=== PATIENT | female | born 1990 | race African-American/Black ===

== ENCOUNTER 2017-06-14 17:44 | Emergency (ER) | payer SELFPAY ==
[~2017-06-14] VITALS: Ht 162.6 cm; Wt 49.9 kg
[2017-06-14 17:49] VITALS: BP 100/66
[2017-06-14 17:51] VITALS: BP 100/65
[2017-06-14] MEDS ORDERED: NKM (17:51)
--- NOTE | 2017-06-14 17:57 | Emergency Room Report ---
History of Present Illness General Chief Complaint: Seizure Source: Patient Present Illness HPI 27YOF BIBEMS from home with alleged seizure for 30 seconds Atraumatic Occurred 20 min ago but patient is on her phone in the ED, talking to me, EMS States last seizure "years ago." Had "a lot of CT and MRI" but no findings Denies formal seizure Dx, never saw neurologist Smokes marijuana regularly Denies other medical problems Allergies: Coded Allergies: No Known Allergies (Unverified , 06/14/17) Patient History Past Medical History: none Past Surgical History: none Pertinent Family History: none Social History: Reports: smoking, drug use Now: No Immunizations: UTD Reviewed Nursing Documentation: PMH: Agreed, PSxH: Agreed Nursing Documentation-PMH Past Medical History: No Stated History Review of Systems All Other Systems: negative except mentioned in HPI Physical Exam Vital Signs Date Time Temp Pulse Resp B/P (MAP) Pulse Ox O2 Delivery O2 Flow Rate FiO2 06/14/17 17:40 98.4 88 18 101/74 98 Room Air Sp02 EP Interpretation: reviewed, normal General Appearance: normal inspection, well appearing, no apparent distress, alert, GCS 15, non-toxic Head: normocephalic, atraumatic Eyes: bilateral eye PERRL, bilateral eye EOMI ENT: normal ENT inspection, hearing grossly normal, normal voice Neck: normal inspection, full range of motion, supple, no bony tend Respiratory: normal inspection, lungs clear, normal breath sounds, no respiratory distress, no retraction, no wheezing Cardiovascular #1: regular rate, rhythm, no edema Gastrointestinal: normal inspection, normal bowel sounds, non tender, soft, no guarding, no hernia Genitourinary: no CVA tenderness Musculoskeletal: normal inspection, back normal, normal range of motion, Zacarias' s Sign negative Neurologic: normal inspection, alert, oriented x3, responsive, intelligence analyst III-XII nml as tested, motor strength/tone normal, speech normal Psychiatric: normal inspection, judgement/insight normal, mood/affect normal Skin: normal inspection, normal color, no rash Medical Decision Making Diagnostic Impression: Primary Impression: Observed seizure-like activity ER Course ?seizure like activity No post-ictal period Vitals otherwise stable No focal neuro deficits ?syncope however no PMHx and ECG is normal as describe below No additional seizure like activity or syncopal episodes in ED Atraumatic Advised PMD followup for Neurology referral Advised that marijuana may lower seizure threshold EKG Diagnostic Results Rate: normal Rhythm: NSR ST Segments: no acute changes ASA given to the pt in ED: No Rhythm Strip Diag. Results EP Interpretation: yes Rate: 86 Rhythm: NSR, no PVC's, no ectopy Last Vital Signs Date Time Temp Pulse Resp B/P (MAP) Pulse Ox O2 Delivery O2 Flow Rate FiO2 06/14/17 17:51 98.3 83 24 100/65 100 Room Air Status: improved Disposition: HOME, SELF-CARE HEATHER BRAGG M.D. Jun 14, 2017 17:57
[2017-06-14 18:51] VITALS: BP 125/79
--- NOTE | 2017-06-15 18:33 | Cardiology Report ---
APPROVED REPORT EKG Measurement Heart [id number] Normal sinus rhythm Normal ECG
== END 2017-06-14 19:00 | disposition home or self-care (01) ==
LOC: EDBD 17:44 → EMR 18:46
DX: R56.9 Unspecified convulsions (principal)
CPT/HCPCS: 80307; 81025; 93005; 99283